=== PATIENT | male | born 1950 | race Caucasian/White ===

== ENCOUNTER 2017-02-27 11:16 | Observation (INO) | payer MEDICARE, BC ==
[2017-02-27] MEDS ORDERED: MECLIZINE 25 MG TAB PO STA (11:47)
[2017-02-27] MEDS ORDERED: DIAZEPAM 5 MG/ML 2 ML SYRINGE IVP STA (11:48)
--- NOTE | 2017-02-27 11:50 | ED ---
General Adult HPI - General Chief complaint: Dizziness Stated complaint: Dizziness/neck pain Time Seen by Provider: 02/27/17 11:25 Source: patient, RN notes reviewed Mode of arrival: wheelchair Limitations: no limitations - History of Present Illness Initial comments: This is a 66-year-old male who presents emergency Department complaining that he woke up this morning the room was spinning. Patient states immediately very difficult to walk without him going to one side. Patient states he notices that moving his head makes symptoms worse. He states if he shuts his eyes or stairs at one point the symptoms appear to get better. Patient also states when it started he had blurred vision in both eyes but now his left eye seems to be worse in his right first blurred vision goes. Patient denies any nausea or vomiting. Patient denies any headache patient denies any numbness weakness. Patient denies any new ringing in ears or new deficits. Patient states she's had episodes of vertigo in the past but they're very short-lived nothing that has lasted this long. Patient denies any palpitations or chest pain. Patient denies any difficulty breathing or shortness of breath. Patient denies any abdominal pain patient denies nausea vomiting or diarrhea. - Related Data Home Medications Medication Instructions Recorded Confirmed Aspirin 81 mg PO DAILY 02/27/17 02/27/17 Benazepril HCl [Lotensin] 40 mg PO DAILY 02/27/17 02/27/17 Ibuprofen [Motrin] 800 mg PO Q8H PRN 02/27/17 02/27/17 Ubidecarenone [Co Q-10] 100 mg PO DAILY 02/27/17 02/27/17 amLODIPine [Norvasc] 10 mg PO DAILY 02/27/17 02/27/17 Allergies Allergy/AdvReac Type Severity Reaction Status Date / Time No Known Allergies Allergy Verified 02/27/17 11:59 Review of Systems ROS Statement: Those systems with pertinent positive or pertinent negative responses have been documented in the HPI. ROS Other: All systems not noted in ROS Statement are negative. Past Medical History Past Medical History: Cancer, Hypertension History of Any Multi-Drug Resistant Organisms: None Reported Past Surgical History: Prostate Surgery Past Psychological History: No Psychological Hx Reported Smoking Status: Former smoker Past Alcohol Use History: None Reported Past Drug Use History: None Reported General Exam - General Exam Comments Initial Comments: GENERAL: Patient is well-developed and well-nourished. Patient is nontoxic and well- hydrated and is in mild distress. ENT: Neck is soft and supple. No significant lymphadenopathy is noted. Oropharynx is clear. Moist mucous membranes. Neck has full range of motion without eliciting any pain. EYES: The sclera were anicteric and conjunctiva were pink and moist. Extraocular movements were intact and pupils were equal round and reactive to light. Eyelids were unremarkable. PULMONARY: Unlabored respirations. Good breath sounds bilaterally. No audible rales rhonchi or wheezing was noted. CARDIOVASCULAR: There is a regular rate and rhythm without any murmurs gallops or rubs. ABDOMEN: Soft and nontender with normal bowel sounds. No palpable organomegaly was noted. There is no palpable pulsatile mass. SKIN: Skin is clear with no lesions or rashes and otherwise unremarkable. NEUROLOGIC: Patient is alert and oriented x3. Cranial nerves II through XII are grossly intact. Motor and sensory are also intact. Normal speech, volume and content. Symmetrical smile. Cerebellar exam grossly intact. MUSCULOSKELETAL: Normal extremities with adequate strength and full range of motion. No lower extremity swelling or edema. No calf tenderness. LYMPHATICS: No significant lymphadenopathy is noted PSYCHIATRIC: Normal psychiatric evaluation. Normal interpersonal interactions appears functionally intact in deals appropriately with others. No signs of depression. No signs of anxiety. Limitations: no limitations Course Vital Signs 02/27/17 02/27/17 11:23 12:25 Temperature 96.7 F L Pulse Rate 82 68 Respiratory 18 20 Rate Blood Pressure 185/86 143/73 O2 Sat by Pulse 97 94 L Oximetry Medical Decision Making - Medical Decision Making EKG shows normal sinus rhythm at 80 bpm SC interval is 148 QRS is 86 QT interval 374 QTC is 431. Patient's EKG shows no ST segment elevation or depression or T wave abnormalities are noted. CT of the brain shows no acute abnormality. Chest x-ray shows no acute abnormality. Patient got Antivert and Valium and remained extremely dizzy. I spoke with Dr. Chu he didn't think admitting the patient was a good idea I spoke with Dr. Pinzon he agreed to admit the patient I wrote admitting orders. - Lab Data Result diagrams: 02/27/17 11:38 02/27/17 11:38 Lab Results 02/27/17 02/27/17 02/27/17 Range/Units 11:38 11:38 11:38 WBC 7.4 (3.8-10.6) k/uL RBC 5.63 (4.30-5.90) m/uL Hgb 16.8 (13.0-17.5) gm/dL Hct 47.1 (39.0-53.0) % MCV 83.7 (80.0-100.0) fL MCH 29.8 (25.0-35.0) pg MCHC 35.6 (31.0-37.0) g/dL RDW 16.3 H (11.5-15.5) % Plt Count 327 (150-450) k/uL Neutrophils % (Manual) 40.0 % Lymphocytes % (Manual) 34.0 % Monocytes % (Manual) 24.0 % Eosinophils % (Manual) 2.0 % Neutrophils # (Manual) 3.0 (1.3-7.7) k/uL Lymphocytes # (Manual) 2.5 (1.0-4.8) k/uL Monocytes # (Manual) 1.8 H (0-1.0) k/uL Eosinophils # (Manual) 0.1 (0-0.7) k/uL Nucleated RBCs 0 (0-0) /100 WBC Large Platelets Present Anisocytosis Slight PT (9.0-12.0) sec INR (<1.1) APTT (22.0-30.0) sec Sodium 141 (137-145) mmol/L Potassium 4.4 (3.5-5.1) mmol/L Chloride 106 (98-107) mmol/L Carbon Dioxide 24 (22-30) mmol/L Anion Gap 11 mmol/L BUN 16 (9-20) mg/dL Creatinine 0.68 (0.66-1.25) mg/dL Est GFR (MDRD) Af Amer >60 (>60 ml/min/1.73 sqM) Est GFR (MDRD) Non-Af >60 (>60 ml/min/1.73 sqM) Glucose 96 (74-99) mg/dL Calcium 9.7 (8.4-10.2) mg/dL Magnesium 2.2 (1.6-2.3) mg/dL Total Bilirubin 1.4 H (0.2-1.3) mg/dL AST 29 (17-59) U/L ALT 23 (21-72) U/L Alkaline Phosphatase 144 H (38-126) U/L Total Creatine Kinase 140 (55-170) U/L CK-MB (CK-2) 3.9 H* (0.0-2.4) ng/mL CK-MB (CK-2) Rel Index 2.8 Troponin I <0.012 (0.000-0.034) ng/mL Total Protein 8.3 H (6.3-8.2) g/dL Albumin 4.9 (3.5-5.0) g/dL 02/27/17 Range/Units 11:38 WBC (3.8-10.6) k/uL RBC (4.30-5.90) m/uL Hgb (13.0-17.5) gm/dL Hct (39.0-53.0) % MCV (80.0-100.0) fL MCH (25.0-35.0) pg MCHC (31.0-37.0) g/dL RDW (11.5-15.5) % Plt Count (150-450) k/uL Neutrophils % (Manual) % Lymphocytes % (Manual) % Monocytes % (Manual) % Eosinophils % (Manual) % Neutrophils # (Manual) (1.3-7.7) k/uL Lymphocytes # (Manual) (1.0-4.8) k/uL Monocytes # (Manual) (0-1.0) k/uL Eosinophils # (Manual) (0-0.7) k/uL Nucleated RBCs (0-0) /100 WBC Large Platelets Anisocytosis PT 11.1 (9.0-12.0) sec INR 1.1 (<1.1) APTT 26.0 (22.0-30.0) sec Sodium (137-145) mmol/L Potassium (3.5-5.1) mmol/L Chloride (98-107) mmol/L Carbon Dioxide (22-30) mmol/L Anion Gap mmol/L BUN (9-20) mg/dL Creatinine (0.66-1.25) mg/dL Est GFR (MDRD) Af Amer (>60 ml/min/1.73 sqM) Est GFR (MDRD) Non-Af (>60 ml/min/1.73 sqM) Glucose (74-99) mg/dL Calcium (8.4-10.2) mg/dL Magnesium (1.6-2.3) mg/dL Total Bilirubin (0.2-1.3) mg/dL AST (17-59) U/L ALT (21-72) U/L Alkaline Phosphatase (38-126) U/L Total Creatine Kinase (55-170) U/L CK-MB (CK-2) (0.0-2.4) ng/mL CK-MB (CK-2) Rel Index Troponin I (0.000-0.034) ng/mL Total Protein (6.3-8.2) g/dL Albumin (3.5-5.0) g/dL Disposition Clinical Impression: Vertigo Disposition: ADMITTED IP TO THIS HOSP Referrals: Cayetano Fay MD [Primary Care Provider] - 1-2 days Time of Disposition: 13:30
[2017-02-27 11:56] LABS: Anisocytosis Slight; Aty Lym Flag Marked; CH 29.1; CHCM 34.8; HCT 47.1 % (39.0-53.0); HDW 3.38; HGB 16.8 gm/dL (13.0-17.5); MCH 29.8 pg (25.0-35.0); MCHC 35.6 g/dL (31.0-37.0); MCV 83.7 fL (80.0-100.0); Mean Platelet Volume 8.1; RBC 5.63 m/uL (4.30-5.90); RDW 16.3 % (11.5-15.5); WBC 7.4 k/uL (3.8-10.6); WBC (Perox) 7.46
[2017-02-27 12:07] LABS: ALT 23 U/L (21-72); AST 29 U/L (17-59); Alkaline Phosphatase 144 U/L (38-126); Anion Gap 11 mmol/L; Blood Urea Nitrogen 16 mg/dL (9-20); Calcium 9.7 mg/dL (8.4-10.2); Carbon Dioxide 24 mmol/L (22-30); Chloride 106 mmol/L (98-107); Glucose 96 mg/dL (74-99); Magnesium 2.2 mg/dL (1.6-2.3); Non-African American GFR(MDRD) >60 (>60 ml/min/1.73 sqM); Potassium 4.4 mmol/L (3.5-5.1); Sodium 141 mmol/L (137-145); Total Bilirubin 1.4 mg/dL (0.2-1.3); Total Protein 8.3 g/dL (6.3-8.2)
[2017-02-27 12:08] LABS: INR 1.1 (<1.1)
[2017-02-27 12:09] LABS: Prothrombin Time 11.1 sec (9.0-12.0)
[2017-02-27 12:14] LABS: Creatine Kinase 140 U/L (55-170)
[2017-02-27 12:17] LABS: Add Differential Manual Differential
[2017-02-27 12:18] LABS: Nucleated Red Blood Cells 0 /100 WBC (0-0); Total Cells Counted 100
[2017-02-27 12:20] LABS: Large Platelets Present
--- NOTE | 2017-02-27 12:20 | CT ---
EXAMINATION TYPE: CT brain wo con DATE OF EXAM: 02/27/2017 COMPARISON: 09/16/2009 HISTORY: Dizziness with neck pain CT DLP: 1109.70 mGycm Automated exposure control for dose reduction was used. FINDINGS: Ventricles and sulci appear normal. There is no mass effect nor midline shift. There is no sign of in tracranial hemorrhage. The calvarium is intact. IMPRESSION: NORMAL UNENHANCED HEAD CT SCAN. NO CHANGE.
--- NOTE | 2017-02-27 12:21 | XR ---
EXAMINATION TYPE: XR chest 2V DATE OF EXAM: 02/27/2017 COMPARISON: 12/14/2010 HISTORY: Dizziness TECHNIQUE: Frontal and lateral views of the chest are obtained. FINDINGS: Heart and mediastinum are normal. Lungs are clear. Diaphragm is normal. There are chest le ads. Bony thorax is intact. IMPRESSION: Normal chest. No change.
[2017-02-27 12:27] LABS: Troponin I <0.012 ng/mL (0.000-0.034)
[2017-02-27 12:28] LABS: Creatine Kinase MB 3.9 ng/mL (0.0-2.4)
[2017-02-27] MEDS ORDERED: ASPIRIN 325 MG TAB PO STA (13:31)
--- NOTE | 2017-02-27 15:51 | US ---
EXAMINATION TYPE: US carotid duplex BILAT DATE OF EXAM: 02/27/2017 COMPARISON: NONE CLINICAL HISTORY: Stenosis. Stenosis EXAM MEASUREMENTS: RIGHT: Peak Systolic Velocity (PSV) cm/sec ----- Right CCA: 70.3 ----- Right ICA: 90.8 ----- Right ECA: 86.8 ICA/CCA ratio: 1.3 RIGHT: End Diastole cm/sec ----- Right CCA: 13.6 ----- Right ICA: 22.6 ----- Right ECA: 0.0 LEFT: Peak Systolic Velocity (PSV) cm/sec ----- Left CCA: 68.9 ----- Left ICA: 62.1 ----- Left ECA: 55.2 ICA/CCA ratio: 0.9 LEFT: End Diastole cm/sec ----- Left CCA: 9.2 ----- Left ICA: 15.0 ----- Left ECA: 0.0 VERTEBRALS (direction of flow): Right Vertebral: Antegrade Left Vertebral: Antegrade Bilateral intimal thickening, plaque bilateral bulb, no elevated velocities, no significant stenosis. IMPRESSION: There is antegrade flow in the vertebral arteries. The images and measurements suggest 1 0% stenosis in both internal carotid arteries. Criteria for Assigning % of Stenosis / Diameter reduction (Estimation based on the indirect measurements of the internal carotid artery velocities (ICA PSV). 1. Normal (no stenosis)=ICA PSV < 125 cm/s: ratio < 2.0: ICA EDV<40 cm/s. 2. Less than 50% stenosis=ICA PSV < 125 cm/s: ratio < 2.0: ICA EDV<40 cm/s. 3. 50 to 69% stenosis=ICA PSV of 125 to 230 cm/s: ration 2.0 ? 4.0: ICA EDV 40-100 cm/s. 4. Greater than 70% stenosis to near occlusion= ICA PSV > 230 cm/s: ratio > 4.0: ICA EDV > 100 cm/s. 5. Near occlusion= ICA PSV velocities may be low or undetectable: variable ratio and ICA EDV. 6. Total occlusion=unable to detect flow.
[2017-02-27 16:10] VITALS: BMI 25.9
[2017-02-27] MEDS ORDERED: IBUPROFEN 800 MG TAB PO PRN (17:18)
[2017-02-28 02:53] LABS: Cholesterol 199 mg/dL (<200); HDL Cholesterol 39 mg/dL (40-60); Triglycerides 129 mg/dL (<150)
[2017-02-28] MEDS: amLODIPine 10 MG TAB PO SCH (08:25)
[2017-02-28] MEDS: ASPIRIN 81 MG CHEW PO SCH (08:27)
[2017-02-28] MEDS: LISINOPRIL 20 MG TAB PO SCH (08:46)
[2017-02-28] MEDS ORDERED: NON-FORMULARY DRUG (Ubidecarenone [Co Q-10] 100 MG) PO SCH (09:00)
[2017-02-28] MEDS ORDERED: ASPIRIN 325 MG TAB PO SCH (09:00)
[2017-02-28] MEDS ORDERED: DIAZEPAM 2 MG TAB PO PRN (15:53)
--- NOTE | 2017-02-28 15:59 | P.HPIM ---
History of Present Illness H&P Date: 02/28/17 58-year-old gentleman comes in the hospital with the intermittent episodes of dizziness where the room spins around him. States that it lasts less than 5 seconds especially to the left side. Patient has been having these symptoms for over a year and half. During that episode and shortly thereafter has issues with ambulation due to incoordination. Patient's past medical history includes prostate cancer No history of strokes reported Patient denies having any change in his hearing over the recent times EKG in the emergency room did not reveal any conduction blocks Carotid study was done which revealed significant abnormality Computed tomography scan of the head did not reveal any abnormalities Review of Systems All systems: negative (Noted in HPI) Past Medical History Past Medical History: Cancer, Hyperlipidemia, Hypertension, Syncope Additional Past Medical History / Comment(s): prostate cancer, last syncope episode was 5 yeasr ago History of Any Multi-Drug Resistant Organisms: None Reported Past Surgical History: Prostate Surgery Additional Past Surgical History / Comment(s): spleenectomy, neck fusion, Past Anesthesia/Blood Transfusion Reactions: No Reported Reaction Past Psychological History: No Psychological Hx Reported Smoking Status: Former smoker Past Alcohol Use History: None Reported Past Drug Use History: None Reported - Past Family History Father Family Medical History: Cancer, Diabetes Mellitus Additional Family Medical History / Comment(s): at 89 from leukemia Mother Family Medical History: Coronary Artery Disease (CAD) Additional Family Medical History / Comment(s): at 72 from [employer] emedical malpractice, hear palpatations Medications and Allergies Home Medications Medication Instructions Recorded Confirmed Type Aspirin 81 mg PO DAILY 02/27/17 02/27/17 History Benazepril HCl [Lotensin] 40 mg PO DAILY 02/27/17 02/27/17 History Ibuprofen [Motrin] 800 mg PO Q8H PRN 02/27/17 02/27/17 History Ubidecarenone [Co Q-10] 100 mg PO DAILY 02/27/17 02/27/17 History amLODIPine [Norvasc] 10 mg PO DAILY 02/27/17 02/27/17 History Allergies Allergy/AdvReac Type Severity Reaction Status Date / Time No Known Allergies Allergy Verified 02/27/17 11:59 Physical Exam Vitals: Vital Signs Temp Pulse Resp BP Pulse Ox 02/28/17 15:32 98.2 F 75 17 114/65 93 L 02/28/17 11:43 97.9 F 50 L 20 105/55 93 L 02/28/17 08:00 97.6 F 61 16 125/65 95 02/28/17 04:00 98.0 F 73 16 121/65 96 02/28/17 00:00 60 16 02/27/17 23:41 97.7 F 80 16 119/73 95 02/27/17 20:00 80 16 02/27/17 19:53 97.6 F 62 16 129/69 93 L 02/27/17 16:00 97.7 F 63 18 136/65 94 L Intake and Output 02/28/17 02/28/17 02/28/17 06:59 14:59 22:59 Intake Total 660 Balance 660 Intake: Oral 660 Other: Voiding Method Toilet Toilet Urinal Urinal Physical exam Gen. appearance oriented 3 in no distress Neck is supple no JVD Lungs good air entry clear to auscultation no rhonchi or wheezing Heart S1-S2 heard regular rate and rhythm no murmurs appreciated Abdomen is soft nontender no organomegaly bowel sounds are intact Neurologically cranial nerves II-12 grossly intact no focal motor or sensory deficits noted stool reducibility dizziness when head is tilted to the left no horizontal nystagmus noted Skin no abnormalities appreciated Results CBC & Chem 7: 02/27/17 11:38 02/27/17 11:38 Labs: Abnormal Lab Results - Last 24 Hours (Table) 02/27/17 Range/Units 11:38 LDL Cholesterol, Calc 134 H (0-99) mg/dL HDL Cholesterol 39 L (40-60) mg/dL Thrombosis Risk Factor Assmnt - Choose All That Apply Other Risk Factors: Yes Each Risk Factor Represents 2 Points: Age 61-74 years Thrombosis Risk Factor Assessment Total Risk Factor Score: 2 Thrombosis Risk Factor Assessment Level: Low Risk Assessment and Plan Plan: #1 peripheral vertigo likely secondary to BPPV #2 history of prostate cancer #3 Spherocytosis Plan Continue with medications like Antivert and Valium. If recurrent symptoms to occur [place] window is positive An Art maneuver would need to be attempted as the proper setting
--- NOTE | 2017-02-28 17:23 | P.CNNES ---
History of Present Illness Consult date: 02/28/17 Requesting physician: Katherine Pinzon Reason for Consult: Vertigo History of Present Illness: Patient is a pleasant 58-year-old male who is being seen on 02/28/2017 per the neurology service per the request of Dr. Pinzon for vertigo. Patient states dizziness usually happens when he sits up in bed in the mornings. Patient reports this dizziness usually short-lived. Patient came to the hospital due to ongoing dizziness lasting longer than usual. Patient states he would wait a few minutes and dizziness would go away. Now patient is reporting dizziness is occurring even with ambulation. Patient does have history of prostate cancer, hyperlipidemia, and hypertension. Patient states he did have syncopal episode about 5 years ago. Vital signs on admission were blood pressure 119/73, pulse ox 95% on room air, temp 97.7, and pulse rate 80. Electrolytes were within normal limits. Patient has elevated LDL of 134 and low HDL of 39. On admission patient had CK-MB of 3.9. Computed tomography scan of the brain showed no acute abnormality. Carotid Doppler showed no hemodynamically significant stenosis. At the time of my evaluation, patient's resting comfortably in bed and appears to be in no acute distress. Review of Systems REVIEW OF SYSTEMS: Otherwise unremarkable and noncontributory. Past Medical History Past Medical History: Cancer, Hyperlipidemia, Hypertension, Syncope Additional Past Medical History / Comment(s): prostate cancer, last syncope episode was 5 yeasr ago History of Any Multi-Drug Resistant Organisms: None Reported Past Surgical History: Prostate Surgery Additional Past Surgical History / Comment(s): spleenectomy, neck fusion, Past Anesthesia/Blood Transfusion Reactions: No Reported Reaction Past Psychological History: No Psychological Hx Reported Smoking Status: Former smoker Past Alcohol Use History: None Reported Past Drug Use History: None Reported - Past Family History Father Family Medical History: Cancer, Diabetes Mellitus Additional Family Medical History / Comment(s): at 89 from leukemia Mother Family Medical History: Coronary Artery Disease (CAD) Additional Family Medical History / Comment(s): at 72 from [employer] emedical malpractice, hear palpatations Medications and Allergies Home Medications Medication Instructions Recorded Confirmed Type Aspirin 81 mg PO DAILY 02/27/17 02/27/17 History Benazepril HCl [Lotensin] 40 mg PO DAILY 02/27/17 02/27/17 History Ibuprofen [Motrin] 800 mg PO Q8H PRN 02/27/17 02/27/17 History Ubidecarenone [Co Q-10] 100 mg PO DAILY 02/27/17 02/27/17 History amLODIPine [Norvasc] 10 mg PO DAILY 02/27/17 02/27/17 History Allergies Allergy/AdvReac Type Severity Reaction Status Date / Time No Known Allergies Allergy Verified 02/27/17 11:59 Physical Examination - Vital Signs Vital Signs: Vital Signs Temp Pulse Resp BP Pulse Ox 02/28/17 15:32 98.2 F 75 17 114/65 93 L 02/28/17 11:43 97.9 F 50 L 20 105/55 93 L 02/28/17 08:00 97.6 F 61 16 125/65 95 02/28/17 04:00 98.0 F 73 16 121/65 96 02/28/17 00:00 60 16 02/27/17 23:41 97.7 F 80 16 119/73 95 02/27/17 20:00 80 16 02/27/17 19:53 97.6 F 62 16 129/69 93 L Intake and Output 02/28/17 02/28/17 02/28/17 06:59 14:59 22:59 Intake Total 660 Balance 660 Intake: Oral 660 Other: Voiding Method Toilet Toilet Urinal Urinal PHYSICAL EXAM: GENERAL APPEARANCE: Patient is a well-developed, male who appears to be in no acute distress. HEENT: Normocephalic, atraumatic, no facial asymmetry is seen. Neck is supple with no masses felt. CARDIOVASCULAR: Regular rate and rhythm. ABDOMEN: Nontender, nondistended. EXTREMITIES: Show no edema or clubbing. NEUROLOGICAL EXAM: Patient is awake, alert, and oriented 3. Speech and language are normal. Strength is full in all 4 extremities. Sensory exam to light touch is normal in all 4 extremities. No facial asymmetry is seen on cranial nerve testing. No tremors or seizure-like activity is noted. Results - Laboratory Findings CBC and BMP: 02/27/17 11:38 02/27/17 11:38 Abnormal Lab Findings: Abnormal Labs 02/27/17 02/27/17 02/27/17 11:38 11:38 11:38 RDW 16.3 H Monocytes # (Manual) 1.8 H Total Bilirubin 1.4 H Alkaline Phosphatase 144 H CK-MB (CK-2) 3.9 H* Total Protein 8.3 H LDL Cholesterol, Calc HDL Cholesterol 02/27/17 11:38 RDW Monocytes # (Manual) Total Bilirubin Alkaline Phosphatase CK-MB (CK-2) Total Protein LDL Cholesterol, Calc 134 H HDL Cholesterol 39 L Assessment and Plan (1) Vertigo Status: Acute Plan: The patient's neurological exam is normal. His vertigo seems to be peripheral in etiology. I did review his computed tomography scan of the brain which showed no acute intracranial abnormalities. Carotid Doppler was negative for hemodynamically significant stenosis. I will order an EEG. Continue Antivert and Valium as needed. A VAT and ENG can be done as an outpatient. He may benefit from vestibular rehab which can be done as an outpatient. Continue current medical management. Continue neurological checks. I will continue to follow with you. Further recommendations to follow. Thank you for allowing me to participate in the care of your patient. Feel free to call with any questions or concerns. I performed an examination of the patient and discussed the management with the ASSOCIATE ENGINEER. I have reviewed the ASSOCIATE ENGINEER notes and agree with the findings and plan of care.
[2017-02-28] MEDS: MECLIZINE 12.5 MG TAB PO PRN (18:03)
[2017-03-01 08:02] VITALS: TEMP 97.6
[2017-03-01] MEDS: LISINOPRIL 20 MG TAB PO SCH (10:09)
[2017-03-01] MEDS: amLODIPine 10 MG TAB PO SCH (10:09)
[2017-03-01] MEDS: ASPIRIN 81 MG CHEW PO SCH (10:10)
[2017-03-01] MEDS: MECLIZINE 12.5 MG TAB PO PRN (10:50)
[2017-03-01 11:56] VITALS: RESP 16
--- NOTE | 2017-03-01 15:23 | P.PN ---
Subjective Principal diagnosis: Patient is a pleasant 58-year-old male who is being followed by the neurology service for vertigo. Patient states vertigo is much better today. Patient is taking meclizine as needed. Patient denies any new neurological complaints. At the time of my evaluation, patient's sitting up in bed and appears to be in no acute distress. Objective - Vital Signs Vital signs: Vital Signs Temp 97.6 F 03/01/17 11:55 Pulse 49 L 03/01/17 11:55 Resp 16 03/01/17 11:55 BP 116/55 03/01/17 11:55 Pulse Ox 94 L 03/01/17 11:55 Intake & Output 02/28/17 03/01/17 03/01/17 18:59 06:59 18:59 Intake Total 900 Balance 900 Intake: Oral 900 Other: Voiding Method Toilet Toilet Toilet Urinal - Exam PHYSICAL EXAM: GENERAL APPEARANCE: Patient is a well-developed, male who appears to be in no acute distress. HEENT: Normocephalic, atraumatic, no facial asymmetry is seen. Neck is supple with no masses felt. CARDIOVASCULAR: Regular rate and rhythm. ABDOMEN: Nontender, nondistended. EXTREMITIES: Show no edema or clubbing. NEUROLOGICAL EXAM: Patient is awake, alert, and oriented 3. Speech and language are normal. Strength is full in all 4 extremities. Sensory exam to light touch is normal in all 4 extremities. No facial asymmetry is seen on cranial nerve testing. No tremors or seizure-like activity is noted. - Labs CBC & Chem 7: 02/27/17 11:38 02/27/17 11:38 Assessment and Plan (1) Vertigo Status: Acute Plan: The patient's neurological exam is normal. His vertigo seems to be peripheral in etiology. His symptoms are consistent with BPPV. I did review his computed tomography scan of the brain which showed no acute intracranial abnormalities. Carotid Doppler was negative for hemodynamically significant stenosis. EEG was done and results are pending. Continue Antivert and Valium as needed. A VAT and ENG can be done as an outpatient. He may benefit from vestibular rehab which can be done as an outpatient. Continue current medical management. Continue neurological checks. Barring any abnormality on the EEG, I will continue to follow with you on an as-needed basis. Patient is stable from a neurological standpoint for discharge. Further testing and treatment can be done in the outpatient setting. I performed an examination of the patient and discussed the management with the MICA MINER. I have reviewed the MICA MINER notes and agree with the findings and plan of care.
[2017-03-01 15:47] VITALS: BP 130/62; PULSE 62
--- NOTE | 2017-03-01 16:24 | P.DS ---
Providers Date of admission: 02/27/17 13:31 Attending physician: Katherine Pinzon Consults: 02/27/17 13:32 Consult Physician Routine Consulting Provider: Joe Matthews Consult Reason/Comments: Vertigo Do you want consulting provider notified?: Yes [facility] Course: 58-year-old gentleman comes in the hospital with the intermittent episodes of dizziness where the room spins around him. States that it lasts less than 5 seconds especially to the left side. Patient has been having these symptoms for over a year and half. During that episode and shortly thereafter has issues with ambulation due to incoordination. Patient's past medical history includes prostate cancer No history of strokes reported Patient denies having any change in his hearing over the recent times EKG in the emergency room did not reveal any conduction blocks Carotid study was done which revealed significant abnormality Computed tomography scan of the head did not reveal any abnormalities 03/01/17 Doing well Physical exam Gen. 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 If recurrent symptoms to occur defer to Dr Fay if pt needs ENT outpatient eval Plan - Discharge Summary New Discharge Prescriptions: New Diazepam [Valium] 2 mg PO BID PRN #30 tab PRN Reason: Vertigo Meclizine [Antivert] 12.5 mg PO BID PRN #60 tab PRN Reason: Vertigo Continue amLODIPine [Norvasc] 10 mg PO DAILY Ibuprofen [Motrin] 800 mg PO Q8H PRN PRN Reason: Pain Benazepril HCl [Lotensin] 40 mg PO DAILY Aspirin 81 mg PO DAILY Ubidecarenone [Co Q-10] 100 mg PO DAILY Discharge Medication List Aspirin 81 mg PO DAILY 02/27/17 [History] Benazepril HCl [Lotensin] 40 mg PO DAILY 02/27/17 [History] Ibuprofen [Motrin] 800 mg PO Q8H PRN 02/27/17 [History] Ubidecarenone [Co Q-10] 100 mg PO DAILY 02/27/17 [History] amLODIPine [Norvasc] 10 mg PO DAILY 02/27/17 [History] Diazepam [Valium] 2 mg PO BID PRN #30 tab 03/01/17 [Rx] Meclizine [Antivert] 12.5 mg PO BID PRN #60 tab 03/01/17 [Rx] Follow up Appointment(s)/Referral(s): Cayetano Fay MD [Primary Care Provider] - 1-2 days Discharge Disposition: HOME SELF-CARE
--- NOTE | 2017-03-09 05:37 | EEG ---
DATE OF SERVICE: 03/01/2017 REASON FOR TESTING: Dizziness. DESCRIPTION OF THE PROCEDURE: This EEG was performed using a 21-channel digital electroencephalograph, following international 10-20 system. DESCRIPTION OF THE RECORDING: From the beginning of the tracing, and with the patient's eyes closed, the background rhythm was mostly consisting of 9 Hz alpha frequency in the posterior occipital leads. No obvious asymmetry is seen. Photic stimulation was performed with a minimal driving response seen. No pathological waves were elicited. Hyperventilation was not performed. Occasional movement artifacts are seen. The patient remains awake throughout the tracing. No epileptiform discharges were seen. His EKG lead showed an irregularly irregular rhythm with a normal rate. INTERPRETATION: This awake EEG can be considered within normal limits except his EKG lead showed an irregularly irregular rhythm with a normal rate. No epileptiform discharges were noticed. The absence of epileptiform discharges does not rule out the diagnosis of epilepsy, therefore clinical correlation is recommended. MTDD
== END 2017-03-01 17:05 | disposition home or self-care (01) ==
LOC: EC 11:16 → 3OBS 13:31
PROVIDERS: ADMIT Internal Medicine; ATTEND Internal Medicine
DX: R42 Dizziness and giddiness (principal); M54.2 Cervicalgia; H53.8 Other visual disturbances; I10 Essential (primary) hypertension; R27.9 Unspecified lack of coordination; E78.5 Hyperlipidemia, unspecified; D58.0 Hereditary spherocytosis; Z98.1 Arthrodesis status; Z82.49 Family history of ischemic heart disease and other diseases of the circulatory system; Z79.899 Other long term (current) drug therapy; Z79.82 Long term (current) use of aspirin; Z87.891 Personal history of nicotine dependence; Z85.46 Personal history of malignant neoplasm of prostate; Z83.3 Family history of diabetes mellitus
CPT/HCPCS: 96374; 99285; 36415; 95819; 93005; 80061; 80053; 82550; 82553; 83735; 84484; 85025; 85610; 85730; 71020; 93880; 70450; G0378 ×3; J3360

== ENCOUNTER → 2017-05-22 | Outpatient (CLI) | payer MEDICARE, BC ==
[2017-05-22 09:00] LABS: Non-African American GFR(MDRD) >60 (>60 ml/min/1.73 sqM)
--- NOTE | 2017-05-22 11:14 | MR ---
EXAMINATION TYPE: MR brain and iac wo/w con DATE OF EXAM: 05/22/2017 COMPARISON: NONE HISTORY: acoustic nerve disorder, tinitinus TECHNIQUE: Multiplanar, multisequence images of the brain and brainstem is performed without and with IV contras t, utilizing 8.5 mL intravenous Gadavist . FINDINGS: Diffusion weighted images demonstrate no evidence of a recent infarct or other diffusion ab normality. There is no extra-axial fluid collection or significant white matter signal abnormality. [id number] degenerative change noted. Nonspecific areas of abnormal signal seen throughout the white matter bilaterally. No evidence of cerebellopontine mass. No diagnostic evidence of schwannoma. Mastoid air cells have a normal appearance. Changes of chronic sinusitis Midline structures demonstrate normal morphology. The craniocervical ju nction appears within normal limits. Post contrast images demonstrate no abnormal enhancement. The d ural venous sinuses appear patent. The visualized sinuses are clear and the globes are intact. IMPRESSION: 1. Nonspecific white matter changes. Remote microvascular ischemia favored. 2. No evidence of acoustic schwannoma or cerebellopontine angle mass
--- NOTE | 2017-05-22 13:56 | MR ---
EXAMINATION TYPE: MR cervical spine wo/w con DATE OF EXAM: 05/22/2017 COMPARISON: NONE HISTORY: cervical fusion TECHNIQUE: Multiplanar, multisequence images of the cervical spine were acquired utilizing 8.5 mL intravenous Ga davist gadolinium contrast. Diffusion weighted imaging was performed. C2-C3: Degenerative disc disease C2-C3. Uncovertebral joint hypertrophy noted there is facet arthropa thy. Loss of vertebral body height and C3 appears chronic. Central disc bulging with mild effacement of thecal sac and borderline canal stenosis and mild bilateral foraminal encroachment. C3-C4: Degenerative disc disease with central disc broad-based protrusion, facet arthropathy, and unc overtebral joint hypertrophy with moderate to severe bilateral foraminal encroachment and moderate to severe canal stenosis. Impression upon the anterior margin the spinal cord noted. C4-C5: Postsurgical change with uncovertebral joint hypertrophy and facet arthropathy and mild bilate ral foraminal encroachment. There is abnormal signal within the spinal cord. C5-C6: Postsurgical change with uncovertebral joint hypertrophy and facet arthropathy and mild bilate ral foraminal encroachment. There is abnormal signal within the spinal cord. C6-C7: Degenerative disc disease. Uncovertebral joint hypertrophy and facet arthropathy should read t o bilateral foraminal encroachment. C7-T1: No evidence for degenerative disc disease. No disc bulge/herniation or protrusion. No Canal stenosis. Foramina are patent bilaterally. Cervical segments are intact. There is normal alignment. Craniovertebral junction relationships ar e within normal limits. Arthropathy of the atlantoaxial joint noted. IMPRESSION: 1. Abnormal signal within the cervical spinal cord at the C4-5 and C5-C6 levels. Finding nonspecific be seen with myelitis or myelomalacia. 2. Postsurgical change with multilevel foraminal encroachment. 3. C3-C4 diffuse disc broad-based protrusion with hypertrophic changes result in moderate to severe c anal stenosis and bilateral foraminal encroachment. There is anterior compression upon the anterior m argin of the spinal cord. Correlate clinically.
== END | disposition home or self-care (01) ==
LOC: RADMRIMAIN 08:28
PROVIDERS: ATTEND Otolaryngology
DX: R90.82 White matter disease, unspecified (principal); M48.02 Spinal stenosis, cervical region; M50.21 Other cervical disc displacement, high cervical region; Z98.890 Other specified postprocedural states
CPT/HCPCS: 82565; 72156; 70553; 36415; A9581

== ENCOUNTER 2018-04-14 14:45 | Emergency (ER) | payer MEDICARE, BC ==
[2018-04-14 14:56] VITALS: RESP 18
[2018-04-14 16:46] LABS: Anisocytosis Slight; HCT 43.8 % (39.0-53.0); HGB 15.2 gm/dL (13.0-17.5); MCH 28.5 pg (25.0-35.0); MCHC 34.7 g/dL (31.0-37.0); MCV 82.1 fL (80.0-100.0); Mean Platelet Volume 7.8; Platelet Count 386 k/uL (150-450); RBC 5.33 m/uL (4.30-5.90); RDW 16.7 % (11.5-15.5); WBC 8.9 k/uL (3.8-10.6)
[2018-04-14 16:47] LABS: INR 2.4 (<1.2); Prothrombin Time 21.3 sec (9.0-12.0)
[2018-04-14 16:58] LABS: ALT 27 U/L (21-72); AST 29 U/L (17-59); Albumin 4.1 g/dL (3.5-5.0); Alkaline Phosphatase 147 U/L (38-126); Anion Gap 7 mmol/L; Blood Urea Nitrogen 20 mg/dL (9-20); Calcium 9.2 mg/dL (8.4-10.2); Carbon Dioxide 26 mmol/L (22-30); Chloride 109 mmol/L (98-107); Glucose 127 mg/dL (74-99); Potassium 4.2 mmol/L (3.5-5.1); Sodium 142 mmol/L (137-145); Total Bilirubin 0.6 mg/dL (0.2-1.3); Total Protein 7.3 g/dL (6.3-8.2)
[2018-04-14 17:05] LABS: Band Neutrophils % 3 %; Basophils # (M) 0.27 k/uL (0-0.2); Eosinophils # (M) 0.09 k/uL (0-0.7); Monocytes # (M) 2.85 k/uL (0-1.0); Neutrophils % (M) 43 %; Nucleated Red Blood Cells 0 /100 WBC (0-0); Total Cells Counted 100
[2018-04-14 17:06] LABS: Large Platelets Present; Poikilocytosis (M) Present
--- NOTE | 2018-04-14 17:14 | ED ---
General Adult HPI - General Chief complaint: Extremity Injury, Upper Stated complaint: L hand Swelling Time Seen by Provider: 04/14/18 15:50 Source: patient Mode of arrival: ambulatory Limitations: no limitations - History of Present Illness Initial comments: 67-year-old male patient presents to the emergency department today for evaluation of left hand swelling and pain. Patient states he has been having these symptoms intermittently over the last couple of weeks. Patient states he has some chronic numbness and tingling to the last 2 fingers on the left hand due to an old neck surgery. Patient denies any fevers or chills with this. States when the swelling starts he does apply an Evan wrap to the area. Patient is currently taking Coumadin for pulmonary embolism in July. Patient states he does have cats at home but denies any injury. Denies any history of similar symptoms. States he does have osteoarthritis but never has had any issues with inflammatory arthritis. Denies any history of gout. Patient denies any recent rash, shortness breath, chest pain, abdominal pain, nausea, vomiting , diarrhea, constipation, back pain, numbness, tingling, dizziness, weakness, hematuria, dysuria, urinary urgency, urinary frequency, headache, visual changes , or any other complaints. - Related Data Home Medications Medication Instructions Recorded Confirmed Benazepril HCl [Lotensin] 40 mg PO DAILY 02/27/17 08/20/17 amLODIPine [Norvasc] 10 mg PO DAILY 02/27/17 08/20/17 Diazepam [Valium] 5 mg PO Q6H PRN 08/20/17 08/20/17 HYDROcodone/APAP 5-325MG [[place] 1 tab PO Q4HR PRN 08/20/17 08/20/17 5-325] Previous Rx's Medication Instructions Recorded Enoxaparin [Lovenox] 80 mg SQ Q12HR #14 syringe 08/22/17 Warfarin Sodium [Coumadin] 5 mg PO HS #10 tablet 08/22/17 Cephalexin [Keflex] 500 mg PO Q6H #40 cap 04/14/18 Allergies Allergy/AdvReac Type Severity Reaction Status Date / Time No Known Allergies Allergy Verified 04/14/18 14:56 Review of Systems ROS Statement: Those systems with pertinent positive or pertinent negative responses have been documented in the HPI. ROS Other: All systems not noted in ROS Statement are negative. Past Medical History Past Medical History: Cancer, Hyperlipidemia, Hypertension, Pneumonia, Pulmonary Embolus (PE), Syncope Additional Past Medical History / Comment(s): prostate cancer, last syncope episode was 5 yeasr ago History of Any Multi-Drug Resistant Organisms: None Reported Past Surgical History: Cholecystectomy, Prostate Surgery Additional Past Surgical History / Comment(s): spleenectomy, neck fusion, Past Anesthesia/Blood Transfusion Reactions: No Reported Reaction Past Psychological History: No Psychological Hx Reported Smoking Status: Light tobacco smoker Past Alcohol Use History: None Reported Past Drug Use History: None Reported - Past Family History Father Family Medical History: Cancer, Diabetes Mellitus Additional Family Medical History / Comment(s): at 89 from leukemia Mother Family Medical History: Coronary Artery Disease (CAD) Additional Family Medical History / Comment(s): at 72 from [place] emedical malpractice, hear palpatations General Exam Limitations: no limitations General appearance: alert, in no apparent distress, other (This is a well- developed, well-nourished adult male patient in no acute distress. Vital signs upon presentation are temperature 98.2F, pulse 79, respirations 18, blood pressure 143/72, pulse ox 99% on room air.) Eye exam: Present: normal appearance, PERRL, EOMI. Absent: scleral icterus, conjunctival injection, periorbital swelling ENT exam: Present: normal exam, normal oropharynx, mucous membranes moist Respiratory exam: Present: normal lung sounds bilaterally. Absent: respiratory distress, wheezes, rales, rhonchi, stridor Cardiovascular Exam: Present: regular rate, normal rhythm, normal heart sounds. Absent: systolic murmur, diastolic murmur, rubs, gallop, clicks Extremities exam: Present: full ROM, normal capillary refill, other (Patient has erythema and mild swelling to the dorsal aspect of the left hand extending up into the wrist. There is no evidence of lymphangitis. Remainder of skin is pink, warm, and dry. Cap refills less than 3 seconds. Radial pulses are 2+ and equal bilaterally.). Absent: normal inspection, tenderness, pedal edema, joint swelling, calf tenderness Neurological exam: Present: alert, oriented X3, CN II-XII intact Psychiatric exam: Present: normal affect, normal mood Skin exam: Present: warm, dry, intact, normal color. Absent: rash Course Vital Signs 04/14/18 04/14/18 14:53 17:45 Temperature 98.2 F 97.0 F L Pulse Rate 79 67 Respiratory 18 18 Rate Blood Pressure 143/72 137/65 O2 Sat by Pulse 99 96 Oximetry Medical Decision Making - Medical Decision Making 67-year-old male patient presented to the emergency department today for evaluation of intermittent pain and swelling to the left hand. Physical examination does reveal erythema and swelling to the dorsal aspect of the left hand and wrist. Patient has full range of motion without pain or limitation. Radial pulses intact. Patient is afebrile. Symptoms are consistent with cellulitis. He'll be discharged home on Keflex. Return parameters were discussed in detail. Is instructed to follow-up with his primary care physician for recheck in 1-2 days. He verbalizes understanding and agrees this plan - Lab Data Result diagrams: 04/14/18 16:24 04/14/18 16:24 Lab Results 04/14/18 04/14/18 04/14/18 Range/Units 16:24 16:24 16:24 WBC 8.9 (3.8-10.6) k/uL RBC 5.33 (4.30-5.90) m/uL Hgb 15.2 (13.0-17.5) gm/dL Hct 43.8 (39.0-53.0) % MCV 82.1 (80.0-100.0) fL MCH 28.5 (25.0-35.0) pg MCHC 34.7 (31.0-37.0) g/dL RDW 16.7 H (11.5-15.5) % Plt Count 386 (150-450) k/uL Neutrophils % (Manual) 43 % Band Neutrophils % 3 % Lymphocytes % (Manual) 18 % Monocytes % (Manual) 32 % Eosinophils % (Manual) 1 % Basophils % (Manual) 3 % Neutrophils # (Manual) 4.00 (1.3-7.7) k/uL Lymphocytes # (Manual) 1.60 (1.0-4.8) k/uL Monocytes # (Manual) 2.85 H (0-1.0) k/uL Eosinophils # (Manual) 0.09 (0-0.7) k/uL Basophils # (Manual) 0.27 H (0-0.2) k/uL Nucleated RBCs 0 (0-0) /100 WBC Manual Slide Review Performed Large Platelets Present Poikilocytosis (manual Present Anisocytosis Slight ESR 24 H (0-15) mm/hr PT 21.3 H (9.0-12.0) sec INR 2.4 H (<1.2) Sodium 142 (137-145) mmol/L Potassium 4.2 (3.5-5.1) mmol/L Chloride 109 H (98-107) mmol/L Carbon Dioxide 26 (22-30) mmol/L Anion Gap 7 mmol/L BUN 20 (9-20) mg/dL Creatinine 0.70 (0.66-1.25) mg/dL Est GFR (CKD-EPI)AfAm >90 (>60 ml/min/1.73 sqM) Est GFR (CKD-EPI)NonAf >90 (>60 ml/min/1.73 sqM) Glucose 127 H (74-99) mg/dL Uric Acid 5.0 (3.5-8.5) mg/dL Calcium 9.2 (8.4-10.2) mg/dL Total Bilirubin 0.6 (0.2-1.3) mg/dL AST 29 (17-59) U/L ALT 27 (21-72) U/L Alkaline Phosphatase 147 H (38-126) U/L C-Reactive Protein 25.0 H (<10.0) mg/L Total Protein 7.3 (6.3-8.2) g/dL Albumin 4.1 (3.5-5.0) g/dL Disposition Clinical Impression: Cellulitis Disposition: HOME SELF-CARE Condition: Good Instructions: Cellulitis (ED) Additional Instructions: Complete antibiotic prescription in full. Follow-up with her primary care physician for recheck in 1-2 days. Return here immediately for any new, worsening, or concerning symptoms. Prescriptions: Cephalexin [Keflex] 500 mg PO Q6H #40 cap Is patient prescribed a controlled substance at d/c from ED?: No Referrals: Cayetano Fay MD [Primary Care Provider] - 1-2 days Time of Disposition: 17:56
[2018-04-14 17:32] LABS: Erythrocyte Sedimentation Rate 24 mm/hr (0-15)
[2018-04-14 17:46] VITALS: BP 137/65; PULSE 67; TEMP 97
[2018-04-14] MEDS ORDERED: CEPHALEXIN 500MG STARTER PACK 4 CAP BTL PO STA (17:55)
== END 2018-04-14 18:15 | disposition home or self-care (01) ==
LOC: EC 14:45
DX: L03.114 Cellulitis of left upper limb (principal); M19.90 Unspecified osteoarthritis, unspecified site; R20.0 Anesthesia of skin; R20.2 Paresthesia of skin; I10 Essential (primary) hypertension; F17.200 Nicotine dependence, unspecified, uncomplicated; Z79.01 Long term (current) use of anticoagulants; Z79.899 Other long term (current) drug therapy; Z86.711 Personal history of pulmonary embolism; Z85.46 Personal history of malignant neoplasm of prostate; Z98.890 Other specified postprocedural states; Z98.1 Arthrodesis status
CPT/HCPCS: 36415; 80053; 84550; 85025; 85610; 85652; 86140; 99283

== ENCOUNTER → 2018-12-27 | Outpatient (CLI) | payer MEDICARE, BC ==
--- NOTE | 2019-01-01 15:12 | P.ARTDOP ---
Arterial Doppler LOWER EXTREMITY ARTERIAL DOPPLER: DATE OF SERVICE: 12/27/2018 Reason for study: Bilateral leg pain with standing and walking. Doppler waveforms: Multiphasic bilaterally throughout. Pulse volume recording: Normal configuration. Pressure gradients: None. Ankle-brachial indices: Greater than 1 bilaterally. Toe pressures: [] on the right, [] on the left Impression: Normal study.
== END ==
LOC: RADUSWWP 10:41
PROVIDERS: ATTEND Internal Medicine Infectious Disease
DX: I73.9 Peripheral vascular disease, unspecified (principal); M79.0 Rheumatism, unspecified
CPT/HCPCS: 93923

== ENCOUNTER → 2020-01-14 | Outpatient (CLI) | payer MEDICARE ==
[2020-01-14 11:25] LABS: Anisocytosis Slight; HCT 43.8 % (39.0-53.0); MCH 29.8 pg (25.0-35.0); MCHC 34.3 g/dL (31.0-37.0); MCV 86.9 fL (80.0-100.0); Mean Platelet Volume 9.5; Platelet Count 437 k/uL (150-450); RBC 5.04 m/uL (4.30-5.90); RDW 17.6 % (11.5-15.5); WBC 6.8 k/uL (3.8-10.6)
[2020-01-14 20:02] LABS: C Reactive Protein 0.9 mg/dL (0.0-0.8); Non-African American GFR(CKD) 94.9 (60.0-200.0)
== END | disposition home or self-care (01) ==
LOC: LABWHC1 10:25
PROVIDERS: ATTEND Internal Medicine Rheumatology
DX: M06.00 Rheumatoid arthritis without rheumatoid factor, unspecified site (principal)
CPT/HCPCS: 36415; 82565; 84450; 84460; 84520; 85027; 86140

== ENCOUNTER → 2020-04-01 | Outpatient (CLI) | payer MEDICARE ==
[2020-04-01 15:14] LABS: Anisocytosis Slight; HCT 44.1 % (39.0-53.0); HGB 14.6 gm/dL (13.0-17.5); MCH 28.8 pg (25.0-35.0); MCV 87.2 fL (80.0-100.0); Mean Platelet Volume 9.7; Platelet Count 372 k/uL (150-450); RBC 5.06 m/uL (4.30-5.90); RDW 17.1 % (11.5-15.5); WBC 5.8 k/uL (3.8-10.6)
[2020-04-01 17:26] LABS: Basophils # (M) 0.06 k/uL (0-0.2); Eosinophils # (M) 0.17 k/uL (0-0.7); Metamyelocytes # (M) 0.06 k/uL (0); Nucleated Red Blood Cells 0 /100 WBC (0-0); Total Cells Counted 100
[2020-04-01 17:27] LABS: Crenated RBC Present
[2020-04-01 19:00] LABS: ALT 23 U/L (10-49); AST 35 U/L (14-35); African American GFR (CKD) 104.2 (60.0-200.0); C Reactive Protein <0.4 mg/dL (0.0-0.8); Non-African American GFR(CKD) 89.9 (60.0-200.0)
[2020-04-02 08:29] LABS: Lymphocytes # (M) 1.45 k/uL (1.0-4.8); Monocytes # (M) 2.26 k/uL (0-1.0); Neutrophils % (M) 32 %
[2020-04-02 08:30] LABS: Poikilocytosis (M) Present
[2020-04-02 10:12] LABS: Neutrophils # (M) 1.86 k/uL (1.3-7.7)
== END | disposition home or self-care (01) ==
LOC: LABWHC1 14:22
DX: M06.00 Rheumatoid arthritis without rheumatoid factor, unspecified site (principal)
CPT/HCPCS: 36415; 82565; 84450; 84460; 84520; 85025; 86140